=== PATIENT | male | born 1995 | race Caucasian/White ===

== ENCOUNTER 2019-08-17 20:41 | Emergency (ER) | payer BC, SELFPAY ==
[2019-08-17 20:52] VITALS: BP 152/81; PULSE 109; RESP 20; TEMP 36.8; O2SAT 99
--- NOTE | 2019-08-17 21:05 | ED.ANIMALBIT ---
HPI - Animal Bite General Chief Complaint: Animal Bite Stated Complaint: dog bite on face Source: patient Mode of arrival: ambulatory Limitations: no limitations History of Present Illness HPI narrative: 23 y.o. healthy male was playing with his 2 year old dog. The dog snapped at his face, lacerating the upper lip and chipping a small piece of the upper incisor. It occurred at 20:00. Rabies vaccines are up to date. Tetanus shot in the past 4 years. Description of animal: household pet Related Data Home Medications Medication Instructions Recorded Confirmed No Home Medications 08/17/19 08/17/19 Allergies Allergy/AdvReac Type Severity Reaction Status Date / Time No Known Allergies Allergy Verified 08/17/19 20:51 Review of Systems Constitutional: Constitutional: Reports no additional constitutional complaints, Denies chills and Denies fever(s) Integumentary/Breasts: Comments: no bites or scratches elsewhere. FOR[facility]LY [facility] Past Medical History Medical History (Updated 08/18/19 @ 00:45 by David Del Cid MD) Patient denies significant medical history Exam Const: General: no acute distress HENMT: Other: 2 cm lac right upper, outer lip through the genaro border. Lac. does not extend to oral mucosa. No oral mucosal trauma. Right upper lateral incisor biting surface is slightly irregular but not more than the left side. Tooth is no loose. Course Course Emergency Course: Pt. informed there would be scarring. Genaro borders were sutured together without use of lidocaine to prevent injection related tissue swelling and loss of landmarks. After this stitch the remainder of the wound was anesthetized. Appropriate info faxed to animal control. Vital Signs Vital signs: Vital Signs Temperature 36.8 C 08/17/19 20:52 Pulse Rate 109 H 08/17/19 20:52 Respiratory Rate 20 08/17/19 20:52 Blood Pressure 152/81 H 08/17/19 20:52 Pulse Oximetry 99 08/17/19 20:52 Temperature 36.8 C 08/17/19 20:52 Pulse Rate 109 H 08/17/19 20:52 Respiratory Rate 14 08/17/19 22:02 Blood Pressure 152/81 H 08/17/19 20:52 Pulse Oximetry 99 08/17/19 20:52 Procedures Laceration Laceration 1: Date: 08/18/19 Time: 21:15 Site: lip Description: linear Depth: simple, single layer Local Anesthetic: lidocaine 1% and with epi Amount of anesthesia used (mL): 1 Pre-repair: wound explored and irrigated extensively ====== Skin Level ====== Skin layer closed with: nylon Size (cm): 5-0 Number of sutures: 3 Technique: simple, interrupted ====== Subcutaneous Layer ====== ====== Muscle Layer ====== ====== Tendon Layer ====== MDM - Animal Bite MDM Narrative Medical decision making narrative: Measure taken to maximize approximation of the genaro borders. Differential Diagnosis Differential diagnosis: Likely dog bite Discharge Plan Discharge Clinical Impression: Bite by animal, Laceration of lip Patient Disposition: Home, Self-Care Condition: Stable Instructions: Animal Bite (ED), Laceration (ED) Additional Instructions: Application of topical antibiotic (eg, bacitracin) to external wounds Avoid opening mouth to the point it pulls on the sutures. ?Removal of nonabsorbable sutures in three to five days Prescriptions: No Action No Home Medications RF: 0 Follow-up/Referrals: PHYSICIAN NOT ON STAFF,NONSTAFF [Primary Care Provider] - Time of Disposition: 21:51 Discharge Date/Time: 08/17/19 22:03
[2019-08-17 22:02] VITALS: RESP 14
== END 2019-08-17 22:03 | disposition home or self-care (01) ==
PROVIDERS: Emergency Provider Family Medicine
DX: S01.511A Laceration without foreign body of lip, initial encounter (principal); W54.0XXA Bitten by dog, initial encounter
CPT/HCPCS: 12011; 99282

== ENCOUNTER 2020-06-26 11:01 | Outpatient (CLI) | payer BC, SELFPAY ==
[2020-06-26 12:35] LABS: SARS-CoV-2 Ag Negative (Negative)
[2020-06-27 01:17] LABS: SARS-CoV-2 RNA PCR Negative
== END 2020-06-26 11:02 | disposition home or self-care (01) ==
LOC: CHSLAB 11:03
PROVIDERS: PCP Nurse Practitioner Family; Visit Provider Nurse Practitioner Family
DX: R05 Cough (principal); R50.9 Fever, unspecified; Z20.822 Contact with and (suspected) exposure to COVID-19
CPT/HCPCS: 87426; C9803; U0003; U0005